=== PATIENT | female | born 1990 | race Caucasian/White ===

== ENCOUNTER 2018-03-30 18:32 | Emergency (ER) | payer OTHER ==
[~2018-03-30] VITALS: Ht 157.5 cm; Wt 81.2 kg
[2018-03-30] MEDS ORDERED: IBUPROFEN800 MG (18:51)
== END 2018-03-30 22:21 | disposition home or self-care (01) ==
LOC: ER 18:32
DX: S00.432A Contusion of left ear, initial encounter (principal); W18.39XA Other fall on same level, initial encounter; Y93.89 Activity, other specified; Y92.89 Other specified places as the place of occurrence of the external cause; Y99.8 Other external cause status; R55 Syncope and collapse